=== PATIENT | male | born 1975 | race Caucasian/White ===

== ENCOUNTER 2024-05-07 10:30 | Outpatient (RCR) | payer BC, SELFPAY | END 2024-05-07 12:44 | disposition home or self-care (01) | PROVIDERS: Visit Provider Physician Assistant Surgical | DX: Z98.890 Other specified postprocedural states (principal); M25.551 Pain in right hip; Z74.09 Other reduced mobility; R29.898 Other symptoms and signs involving the musculoskeletal system; R26.9 Unspecified abnormalities of gait and mobility; Z51.89 Encounter for other specified aftercare | CPT/HCPCS: 97110; 97116; 97140; 97161 ==